=== PATIENT | male | born 1950 | race Caucasian/White ===

== ENCOUNTER 2017-11-18 02:57 | Emergency (ER) | payer MEDICARE, OTHER | END 2017-11-18 04:13 | LOC: EC 02:57 | DX: Z03.89 Encounter for observation for other suspected diseases and conditions ruled out (principal); Z93.1 Gastrostomy status; J44.9 Chronic obstructive pulmonary disease, unspecified; E11.22 Type 2 diabetes mellitus with diabetic chronic kidney disease; N18.9 Chronic kidney disease, unspecified; E11.40 Type 2 diabetes mellitus with diabetic neuropathy, unspecified; F03.90 Unspecified dementia, unspecified severity, without behavioral disturbance, psychotic disturbance, mood disturbance, and anxiety; K21.9 Gastro-esophageal reflux disease without esophagitis; Z86.73 Personal history of transient ischemic attack (TIA), and cerebral infarction without residual deficits; Z87.891 Personal history of nicotine dependence; Z79.82 Long term (current) use of aspirin; Z79.01 Long term (current) use of anticoagulants; Z79.4 Long term (current) use of insulin; Z79.899 Other long term (current) drug therapy; Z88.0 Allergy status to penicillin; Z88.8 Allergy status to other drugs, medicaments and biological substances | CPT/HCPCS: 74018; 99283 ==

== ENCOUNTER → 2017-11-18 | Outpatient (CLI) | payer MEDICARE, OTHER ==
--- NOTE | 2017-11-18 08:51 | XR ---
EXAM: XR Abdomen, 2 Views CLINICAL HISTORY: [id number]/30ml iv only given and 20 ml wasted, peg tube placement TECHNIQUE: Frontal view of the abdomen/pelvis with upright view of the abdomen. COMPARISON: X-ray dated 11/10/2017. FINDINGS: Intraperitoneal space: No evidence of free air. Gastrointestinal tract: Unremarkable. No dilation. Bones/joints: Unremarkable. Tubes, lines and devices: Single radiograph demonstrates contrast injected through a PEG tube. The PEG tube is in appropriate position without evidence of contrast leakage. Apparent right common iliac artery stent. IMPRESSION: No acute findings.
== END | disposition home or self-care (01) ==
LOC: RADXRMAIN 03:10
PROVIDERS: ATTEND Physician Assistant
DX: Z01.818 Encounter for other preprocedural examination (principal)
CPT/HCPCS: 74018; Q9967